=== PATIENT | female | born 1955 | race Caucasian/White ===

== ENCOUNTER 2020-09-17 14:43 | Outpatient (CLI) | payer MEDICARE ==
--- NOTE | 2020-09-17 15:11 | RAD ---
Exam: XR Knee Lt 2 View HISTORY: Left knee pain. COMPARISON: None FINDINGS: No acute fracture, dislocation, or other acute osseous abnormality is identified. IMPRESSION: No acute osseous abnormality is identified.
--- NOTE | 2020-09-17 15:11 | RAD ---
XR Knee Rt 2 View HISTORY: Right knee pain FINDINGS: No fracture or dislocation is identified. No significant osteophytosis or bony destruction is seen.
== END 2020-09-17 14:44 | disposition home or self-care (01) ==
LOC: BICRAD 14:43
PROVIDERS: ATTEND Internal Medicine Rheumatology
DX: M25.561 Pain in right knee (principal); M25.562 Pain in left knee

== ENCOUNTER 2021-04-17 08:20 | Outpatient (CLI) | payer MEDICARE | END 2021-04-17 08:21 | disposition home or self-care (01) | LOC: BICMAMMO 08:20 | PROVIDERS: ATTEND Internal Medicine Rheumatology | DX: M81.0 Age-related osteoporosis without current pathological fracture (principal); M85.89 Other specified disorders of bone density and structure, multiple sites | CPT/HCPCS: 77080 ==

== ENCOUNTER 2022-10-30 13:24 | Outpatient (CLI) | payer MEDICARE | END 2022-10-30 13:25 | disposition home or self-care (01) | LOC: BICMAMMO 13:24 | PROVIDERS: ATTEND Internal Medicine | DX: M85.89 Other specified disorders of bone density and structure, multiple sites (principal); M81.0 Age-related osteoporosis without current pathological fracture | CPT/HCPCS: 77080 ==